=== PATIENT | male | born 1965 | race Native Hawaiian/Other Pacific Islander ===

== ENCOUNTER 2016-11-03 17:27 | Emergency (ER) | payer OTHER ==
[~2016-11-03] VITALS: Ht 180.3 cm; Wt 68.0 kg
[2016-11-03 17:29] VITALS: BP 134/76; PULSE 73; RESP 14; TEMP 97.8; O2SAT 100
--- NOTE | 2016-11-03 17:32 | PD ---
Physical Exam Time Seen by Provider: 17:31 Narrative 51 y/o male with red bumps on left side of chest/back for 2-3 days. vital signs reviewed. Seen at triage desk. Awaiting bed placement. Data Data Last Documented VS Vital Signs Date Time Temp Pulse Resp B/P Pulse Ox O2 Delivery O2 Flow Rate FiO2 11/03/16 17:29 97.8 73 14 134/76 100 MDM Medical Record Reviewed: Yes Supervised Visit with CATINA: Dez Woods November 03, 2016 17:32
[2016-11-03] MEDS ORDERED: IBUP800T23 PO (18:25)
[2016-11-03] MEDS ORDERED: VALA1TAB PO (18:25)
--- NOTE | 2016-11-03 18:25 | PD ---
HPI Chief Complaint: Skin Problem Time Seen by Provider: 18:22 Travel History International Travel<30 days: No Contact w/Intl Traveler<30days: No Traveled to known affect area: No History of Present Illness HPI 51-year-old male presents to emergency Department with complaint of a rash to his left chest and left back 3 days. Denies fever, vomiting. Reports rash is painful. Has tried some topical cream with no relief of symptoms. Denies new detergents, lotions, soaps, environmental exposures, medications, foods. No known allergies. Has no other medical complaints. No modifying factors or associated signs and symptoms. PFSH Social History Tobacco Use: No Allergies-Medications Reported Meds & Prescriptions Reported Meds & Active Scripts Active Valacyclovir (Valacyclovir HCl) 1 Gm Tab 1,000 Mg PO TID 7 Days Ibuprofen 800 Mg Tab 800 Mg PO Q6HR PRN Review of Systems Except as stated in HPI: all other systems reviewed are Neg Physical Exam Narrative GENERAL: Well-nourished, well-developed male patient, in no acute distress; afebrile, nontoxic-appearing SKIN: Warm and dry. Left chest and left upper back with erythremic grouped vesicles present in a dermatomal distribution, consistent with shingles. No drainage or edema. HEAD: Atraumatic. Normocephalic. EYES: Pupils equal and round. No scleral icterus. No injection or drainage. ENT: Mucosa pink and moist. Airway patent. NECK: Trachea midline. CARDIOVASCULAR: Regular rate. RESPIRATORY: No accessory muscle use. GASTROINTESTINAL: Flat. MUSCULOSKELETAL: No obvious deformities. No clubbing. No cyanosis. No edema. NEUROLOGICAL: Awake and alert. Oriented 3. No obvious cranial nerve deficits. Motor grossly within normal limits. Normal speech. PSYCHIATRIC: Appropriate mood and affect; insight and judgment normal. Data Data Last Documented VS Vital Signs Date Time Temp Pulse Resp B/P Pulse Ox O2 Delivery O2 Flow Rate FiO2 11/03/16 17:29 97.8 73 14 134/76 100 MDM Medical Decision Making Medical Screen Exam Complete: Yes Emergency Medical Condition: Yes Medical Record Reviewed: Yes Differential Diagnosis Shingles, contact dermatitis, hives Narrative Course 51-year-old male physical exam consistent with shingles outbreak to left chest and left upper back. Afebrile and nontoxic-appearing. Denies fever, vomiting. Valacyclovir, ibuprofen prescribed for home. Instructed patient to follow up with dermatology. Patient verbalizes understanding and agreement with treatment plan. Patient is medically cleared and stable for discharge. Discussed reasons to return to the emergency department. Instructed patient to follow up with primary care provider. Patient agrees with treatment plan. The patients vital signs are stable and the patient is stable for outpatient follow- up and treatment. Patient discharged home, stable and in no acute distress. Diagnosis Primary Impression: Shingles Qualified Code: B02.9 - Herpes zoster without complication Referrals: [facility] Primary Care Physician Patient Instructions: General Instructions, Shingles (ED) Departure Forms: Tests/Procedures, Work Release Enter return to work date: November 08, 2016 Additional Instructions: Take medications as prescribed Cough, wet compresses to the rash to help relieve itching and pain as needed Cool Bath to help relieve itching and pain as needed Follow-up with a primary care provider Return to the emergency department immediately with worsening of symptoms Med/Other Pt SpecificInfo: Prescription(s) given Scripts Valacyclovir 1 Gm Tab1,000 Mg PO TID 7 Days Ref 0 Prov:Diandra Cat 11/03/16 Ibuprofen 800 Mg [id number] Mg PO Q6HR PRN (PAIN) #30 TAB Ref 0 Prov:Diandra Cat 11/03/16 Disposition: 01 DISCHARGE HOME Condition: Stable Diandra Cat November 03, 2016 18:25
== END 2016-11-03 18:54 | disposition home or self-care (01) ==
LOC: NEPK 17:27
DX: B02.9 Zoster without complications (principal)
CPT/HCPCS: 99282